=== PATIENT | male | born 1965 | race Caucasian/White ===

== ENCOUNTER 2020-01-23 23:35 | Emergency (ER) | payer OTHER ==
[~2020-01-23] VITALS: Ht 180.3 cm; Wt 120.0 kg
--- NOTE | 2020-01-23 23:55 | NUR ---
FIRST CONTACT WITH PT: PT BIB [facility] DUE TO HTN. 198/107 UPON ARRIVAL. PT NAD, RESP WNL, DENIES LOC, TRAUMA, STATES "I HAVENT TAKEN MY BP MEDS FOR A BIT CAUSE I RELAPSED". PT STATES HE HAS A HISTORY OF HTN, PULSES 2+. PLACED ON ECG, BP, SPO2 MONITORING. [facility]UT[facility]. ALEKSEY CUNNINGHAM AT BS FOR EVAL/POC.
[2020-01-24] MEDS ORDERED: LOSARTAN 25MG TABLET PO SCH
[2020-01-24 00:21] VITALS: BP 189/109
--- NOTE | 2020-01-24 00:22 | NUR ---
Patient given discharge instructions and they have confirmed that they understand the instructions. Patient ambulatory with steady gait. DENIES ADDITIONAL QUESTIONS AT THIS TIME, NAD, P/W/D.
== END 2020-01-24 00:50 | disposition home or self-care (01) ==
LOC: ED 01-24 00:30
DX: I10 Essential (primary) hypertension (principal); E11.9 Type 2 diabetes mellitus without complications
CPT/HCPCS: 93005; 99283